=== PATIENT | female | born 1985 | race African-American/Black ===

== ENCOUNTER 2020-07-07 13:18 | Inpatient (IN) ==
[2020-07-07] MEDS ORDERED: DILTIAZEM 50 MG/10 ML VIAL IV STA (14:42)
[2020-07-07 14:49] LABS: Basophils % 0.2 % (0.0-0.8); Eosinophils # 0.1 10*3/uL (0.0-0.87); Eosinophils % 1.3 % (0.00-10.9); Hematocrit 40.9 VOL% (35.7-47.0); Hemoglobin 13.8 GM/DL (12.0-16.0); Immature Granulocytes % 0.5 %; Immature Granulocytes Absolute 0.05 #; Lymphocytes # 2.3 10*3/uL (1.4-4.0); Lymphocytes % 23.3 % (21.3-54.2); Mean Corpuscular HGB Conc 33.7 GM/DL (32-36); Mean Platelet Volume 10.6 FL (9.6-12.0); Monocytes % 6.7 % (1.7-12.7); Platelet Count 229 T/CUMM (130-400); Red Blood Count 4.35 MC/CUMM (3.8-5.5); Red Cell Distribution Width 15.4 % (9.3-17.3); White Blood Count 9.8 T/CUMM (4-12)
[2020-07-07 15:10] LABS: Albumin 3.6 G/DL (3.4-5.0); Bilirubin,Total 0.6 MG/DL (0.2-1.0); Calcium 9.2 MG/DL (8.5-10.1); Osmolality,Calculated 270.8 MOS/KG (273-304); Potassium 3.3 MMOL/L (3.5-5.1); Thyroid Stimulating Hormone 1.4 uIU/ml (0.358-3.74); Total Protein 9.1 G/DL (6.4-8.2)
[2020-07-07 16:00] LABS: Barbiturates Screen,Urine Negative (Negative); Benzodiazepines Screen,Urine Positive (Negative); Cannabinoid Screen,Urine Positive (Negative); Opiate Screen,Urine Negative (Negative); Phencyclidine Screen,Urine Negative (Negative)
[2020-07-07] MEDS ORDERED: ONDANSETRON 4 MG/2 ML VIAL IV STA (16:01)
[2020-07-07] MEDS ORDERED: HYDROmorphone 2 MG/1 ML VIAL IV STA (16:01)
[2020-07-07] MEDS ORDERED: guaiFENesin/DM ER 600-30 MG TABLET PO PRN (16:36)
[2020-07-07] MEDS ORDERED: MORPHINE 4 MG/1 ML VIAL IV PRN (16:36)
[2020-07-07] MEDS ORDERED: hydrALAZINE 20 MG/1 ML VIAL IV PRN (16:36)
[2020-07-07] MEDS ORDERED: DOCUSATE SODIUM 100 MG CAPSULE PO PRN (16:36)
[2020-07-07] MEDS ORDERED: GLUCAGON 1 MG VIAL IM PRN (16:36)
[2020-07-07] MEDS ORDERED: ACETAMINOPHEN 325 MG TABLET PO PRN (16:36)
[2020-07-07] MEDS ORDERED: ZALEPLON 5 MG CAPSULE PO PRN (16:36)
[2020-07-07] MEDS ORDERED: DEXTROSE 50% 25 GM/50 ML VIAL IV PRN (16:36)
[2020-07-07] MEDS ORDERED: FUROSEMIDE 20 MG TABLET PO PRN (16:49)
[2020-07-07] MEDS ORDERED: SODIUM CHLORIDE 0.9% 1,000 ML IV SCH (17:00)
[2020-07-07] MEDS ORDERED: POTASSIUM CHLORIDE 20 MEQ TABLET PO PRN (17:07)
[2020-07-07] MEDS ORDERED: ENOXAPARIN 150 MG/ML SYRINGE SUBCUT SCH (17:30)
[2020-07-07] MEDS: DILTIAZEM INJ 100 MG in SODIUM CHLORIDE 0.9% 100 ML IV SCH (18:18)
[2020-07-07] MEDS: HYDROmorphone 2 MG/1 ML VIAL IV PRN ×3 (18:49→22:33)
[2020-07-07] MEDS: POTASSIUM CHLORIDE INJ 30 MEQ in SODIUM CHLORIDE 0.9% 1,000 ML IV SCH (19:58)
[2020-07-07] MEDS: PROPRANOLOL 20 MG TABLET PO SCH (21:19)
[2020-07-07] MEDS: LORazepam 1 MG TABLET PO SCH (21:19)
[2020-07-07] MEDS: ONDANSETRON 4 MG/2 ML VIAL IV PRN (22:22)
[2020-07-08 02:14] LABS: Bacteria,Urine Occasional /HPF (Few); Bilirubin,Urine Negative (Negative); Blood, Urine Negative (Negative); Glucose,Urine (UA) Negative (Negative); Ketones,Urine 80 mg/dL (Negative); Mucus,Urine Occasional /LPF (Occasional); Nitrite,Urine Negative (Negative); Protein,Urine 30 MG/DL; RBC,Urine 1 /HPF (0-4); Squamous Epithelial Cell,Urine Occasional /HPF (0-10); Urine Appearance CLEAR (Clear); Urine Color Yellow (Yellow); Urine Specific Gravity 1.016 (1.001-1.035); Urine Urobilinogen < 2.0 EU/DL (0.2-1.0)
[2020-07-08] MEDS: HYDROmorphone 2 MG/1 ML VIAL IV PRN ×5 (02:37→20:45)
[2020-07-08 04:38] LABS: Basophils % 0.1 % (0.0-0.8); Eosinophils % 0.3 % (0.00-10.9); Hematocrit 38.8 VOL% (35.7-47.0); Immature Granulocytes % 0.3 %; Immature Granulocytes Absolute 0.03 #; Lymphocytes # 1.5 10*3/uL (1.4-4.0); Lymphocytes % 16.7 % (21.3-54.2); Mean Corpuscular HGB Conc 33.5 GM/DL (32-36); Mean Corpuscular Volume 94.6 FL (87-102); Mean Platelet Volume 9.9 FL (9.6-12.0); Monocytes % 6.1 % (1.7-12.7); Neutrophils % 76.5 % (38.7-73.9); Platelet Count 183 T/CUMM (130-400); Red Cell Distribution Width 15.5 % (9.3-17.3); White Blood Count 9.1 T/CUMM (4-12)
[2020-07-08] MEDS: POTASSIUM CHLORIDE INJ 30 MEQ in SODIUM CHLORIDE 0.9% 1,000 ML IV SCH ×4 (05:01→21:50)
[2020-07-08 05:28] LABS: Calcium 9.1 MG/DL (8.5-10.1); Osmolality,Calculated 272.7 MOS/KG (273-304); Potassium 3.5 MMOL/L (3.5-5.1); Risk Ratio 2.42; VLDL CHOLESTEROL 29.6 MG/DL
[2020-07-08] MEDS ORDERED: ENOXAPARIN 150 MG/ML SYRINGE SUBCUT SCH (06:30)
[2020-07-08] MEDS: ONDANSETRON 4 MG/2 ML VIAL IV PRN ×4 (07:57→20:41)
[2020-07-08] MEDS: PROPRANOLOL 20 MG TABLET PO SCH ×4 (10:00→20:43)
[2020-07-08] MEDS: PANTOPRAZOLE 40 MG TABLET PO SCH ×2 (10:00→13:26)
[2020-07-08] MEDS: LORazepam 1 MG TABLET PO SCH ×4 (10:00→20:43)
[2020-07-08] MEDS: hydrALAZINE 20 MG/1 ML VIAL IV PRN (11:03)
[2020-07-08] MEDS: DILTIAZEM INJ 100 MG in SODIUM CHLORIDE 0.9% 100 ML IV SCH (15:16)
[2020-07-09] MEDS: ONDANSETRON 4 MG/2 ML VIAL IV PRN ×5 (01:07→18:03)
[2020-07-09] MEDS: HYDROmorphone 2 MG/1 ML VIAL IV PRN ×6 (01:10→20:53)
[2020-07-09] MEDS: POTASSIUM CHLORIDE INJ 30 MEQ in SODIUM CHLORIDE 0.9% 1,000 ML IV SCH ×3 (01:13→17:09)
[2020-07-09 05:41] LABS: Albumin 3.3 G/DL (3.4-5.0); Bilirubin,Total 0.6 MG/DL (0.2-1.0); Calcium 8.8 MG/DL (8.5-10.1); Osmolality,Calculated 273.7 MOS/KG (273-304); Potassium 3.7 MMOL/L (3.5-5.1); Total Protein 8.1 G/DL (6.4-8.2)
[2020-07-09] MEDS: ENOXAPARIN 40 MG/0.4 ML SYRINGE SUBCUT SCH (08:29)
[2020-07-09] MEDS: PANTOPRAZOLE 40 MG TABLET PO SCH (08:29)
[2020-07-09] MEDS: PROPRANOLOL 20 MG TABLET PO SCH ×3 (08:29→20:53)
[2020-07-09] MEDS: LORazepam 1 MG TABLET PO SCH ×3 (08:29→20:53)
[2020-07-09] MEDS: DILTIAZEM CD 120 MG CAPSULE PO SCH (09:03)
[2020-07-09] MEDS: LOSARTAN 50 MG TABLET PO SCH (09:04)
[2020-07-09] MEDS: hydrALAZINE 20 MG/1 ML VIAL IV PRN (11:50)
[2020-07-10] MEDS: ONDANSETRON 4 MG/2 ML VIAL IV PRN ×2 (00:25→08:30)
[2020-07-10] MEDS: hydrALAZINE 20 MG/1 ML VIAL IV PRN (00:28)
[2020-07-10] MEDS: HYDROmorphone 2 MG/1 ML VIAL IV PRN ×3 (00:39→15:55)
[2020-07-10] MEDS ORDERED: LABETALOL 20 MG/4 ML SYRINGE IV ONE (02:46)
[2020-07-10] MEDS: POTASSIUM CHLORIDE INJ 30 MEQ in SODIUM CHLORIDE 0.9% 1,000 ML IV SCH ×4 (03:12→20:36)
[2020-07-10] MEDS: LORazepam 1 MG TABLET PO SCH ×3 (08:23→20:35)
[2020-07-10] MEDS: DILTIAZEM CD 120 MG CAPSULE PO SCH (08:23)
[2020-07-10] MEDS: LOSARTAN 50 MG TABLET PO SCH ×2 (08:23→09:11)
[2020-07-10] MEDS: ENOXAPARIN 40 MG/0.4 ML SYRINGE SUBCUT SCH (08:24)
[2020-07-10] MEDS: PANTOPRAZOLE 40 MG TABLET PO SCH (08:24)
[2020-07-10] MEDS: PROPRANOLOL 20 MG TABLET PO SCH ×3 (08:24→20:35)
[2020-07-10] MEDS ORDERED: DILTIAZEM CD 240 MG CAPSULE PO SCH (09:00)
[2020-07-10] MEDS ORDERED: DILTIAZEM CD 120 MG CAPSULE PO ONE (09:30)
[2020-07-11] MEDS: HYDROmorphone 2 MG/1 ML VIAL IV PRN (01:46)
[2020-07-11] MEDS: POTASSIUM CHLORIDE INJ 30 MEQ in SODIUM CHLORIDE 0.9% 1,000 ML IV SCH ×3 (01:51→15:34)
[2020-07-11 05:08] LABS: Basophils % 0.3 % (0.0-0.8); Eosinophils # 0.1 10*3/uL (0.0-0.87); Eosinophils % 1.4 % (0.00-10.9); Hematocrit 35.7 VOL% (35.7-47.0); Hemoglobin 11.8 GM/DL (12.0-16.0); Immature Granulocytes % 0.3 %; Immature Granulocytes Absolute 0.02 #; Lymphocytes # 2.1 10*3/uL (1.4-4.0); Lymphocytes % 33.2 % (21.3-54.2); Mean Corpuscular HGB Conc 33.1 GM/DL (32-36); Mean Corpuscular Volume 95.5 FL (87-102); Mean Platelet Volume 9.8 FL (9.6-12.0); Monocytes % 12.2 % (1.7-12.7); Neutrophils % 52.6 % (38.7-73.9); Platelet Count 182 T/CUMM (130-400); Red Blood Count 3.74 MC/CUMM (3.8-5.5); Red Cell Distribution Width 15.4 % (9.3-17.3); White Blood Count 6.3 T/CUMM (4-12)
[2020-07-11 05:28] LABS: Bilirubin,Direct 0.1 MG/DL (0.0-0.20); Bilirubin,Indirect 0.5 MG/DL (0.0-1.0); Bilirubin,Total 0.6 MG/DL (0.2-1.0); Calcium 8.5 MG/DL (8.5-10.1); Osmolality,Calculated 266.2 MOS/KG (273-304); Potassium 3.6 MMOL/L (3.5-5.1); Total Protein 7.6 G/DL (6.4-8.2)
[2020-07-11] MEDS: LOSARTAN 50 MG TABLET PO SCH (08:32)
[2020-07-11] MEDS: PROPRANOLOL 20 MG TABLET PO SCH (08:32)
[2020-07-11] MEDS: LORazepam 1 MG TABLET PO SCH (08:32)
[2020-07-11] MEDS: PANTOPRAZOLE 40 MG TABLET PO SCH (08:32)
[2020-07-11] MEDS: ENOXAPARIN 40 MG/0.4 ML SYRINGE SUBCUT SCH (08:33)
[2020-07-11] MEDS ORDERED: DILTIAZEM CD 240 MG CAPSULE PO SCH (09:00)
[2020-07-11 11:36] VITALS: BP 148/84
== END 2020-07-11 15:00 | disposition home or self-care (01) | DRG 439 ==
LOC: N.ED 13:18 → N.EDINP 13:18 → SUATTDRO 16:36 → N.EDINP 17:17 → N.TELEN 17:32
PROVIDERS: ADMIT Internal Medicine Geriatric Medicine; ATTEND Internal Medicine

== ENCOUNTER 2021-12-24 10:55 | Inpatient (IN) ==
[2021-12-24] MEDS ORDERED: DILTIAZEM 25 MG/5 ML VIAL IV STA (11:16)
[2021-12-24] MEDS ORDERED: DILTIAZEM 50 MG/10 ML VIAL IV ONE (11:23)
[2021-12-24 11:30] LABS: Basophils % 0.2 % (0.0-0.8); Eosinophils % 0.2 % (0.00-10.9); Hematocrit 36.6 VOL% (35.7-47.0); Hemoglobin 12.6 GM/DL (12.0-16.0); Immature Granulocytes % 0.6 %; Immature Granulocytes Absolute 0.05 #; Lymphocytes # 1.3 10*3/uL (1.4-4.0); Lymphocytes % 15.1 % (21.3-54.2); Mean Corpuscular HGB Conc 34.4 GM/DL (32-36); Mean Corpuscular Volume 99.7 FL (87-102); Mean Platelet Volume 10.9 FL (9.6-12.0); Monocytes # 0.5 10*3/uL (0.11-0.8); Monocytes % 5.6 % (1.7-12.7); NRBC # 0.02 10*3/uL; Neutrophils % 78.3 % (38.7-73.9); Platelet Count 149 T/CUMM (130-400); Red Blood Count 3.67 MC/CUMM (3.8-5.5); Red Cell Distribution Width 18.3 % (9.3-17.3); White Blood Count 8.6 T/CUMM (4-12)
[2021-12-24] MEDS: DILTIAZEM INJ 100 MG in SODIUM CHLORIDE 0.9% 100 ML IV SCH ×2 (11:31→16:35)
[2021-12-24 11:43] LABS: PT Patient Result 10.6 SECS (10.1-12.1); Partial Thromboplastin Time 23.6 SECS (23.7-32.9)
[2021-12-24 11:53] LABS: Albumin 3.8 G/DL (3.4-5.0); Bilirubin,Total 0.9 MG/DL (0.20-1.00); Calcium 8.5 MG/DL (8.5-10.1); Osmolality,Calculated 270.8 MOS/KG (273-304); Potassium 3.2 MMOL/L (3.5-5.1); Total Protein 8.8 G/DL (6.4-8.2)
[2021-12-24] MEDS ORDERED: POTASSIUM CHLORIDE 20 MEQ TABLET PO STA (12:07)
[2021-12-24 12:24] LABS: Thyroid Stimulating Hormone 0.358 uIU/ml (0.358-3.74)
[2021-12-24] MEDS ORDERED: ONDANSETRON 4 MG/2 ML VIAL ONE (12:57)
[2021-12-24] MEDS ORDERED: MAGNESIUM SULF INJ 3 GM in SODIUM CHLORIDE 0.9% 100 ML IV ONE (13:00)
[2021-12-24] MEDS ORDERED: ALUMINUM/MAGNES/SIMETH MAX STR 30 ML UDCUP PO PRN (13:00)
[2021-12-24] MEDS ORDERED: hydrALAZINE 20 MG/1 ML VIAL IV PRN (13:00)
[2021-12-24] MEDS ORDERED: ENOXAPARIN 40 MG/0.4 ML SYRINGE SUBCUT SCH (13:00)
[2021-12-24] MEDS: LORazepam 1 MG TABLET PO PRN ×2 (13:20→18:10)
[2021-12-24] MEDS ORDERED: MULTIVITAMIN INJ 10 ML in DEXTROSE 5% NACL 0.45% 1,000 ML IV SCH (15:00)
[2021-12-24] MEDS: PROPRANOLOL 20 MG TABLET PO SCH ×2 (16:38→22:15)
[2021-12-24] MEDS: APIXABAN 5 MG TABLET PO SCH ×2 (16:39→22:15)
[2021-12-24] MEDS: CALCIUM CARBONATE CHEW 500 MG TABLET PO PRN ×2 (18:09→18:11)
[2021-12-24] MEDS: chlordiazePOXIDE 25 MG CAPSULE PO PRN (18:10)
[2021-12-24] MEDS: busPIRone 15 MG TABLET PO SCH (22:15)
[2021-12-24] MEDS: FAMOTIDINE 20 MG TABLET PO SCH (22:15)
[2021-12-24] MEDS: ONDANSETRON 4 MG/2 ML VIAL IV PRN (22:24)
[2021-12-24 23:34] LABS: Bacteria,Urine Occasional /HPF (Few); Hyaline Casts,Urine 2 /LPF (0-3); Mucus,Urine Few /LPF (Occasional); RBC,Urine 2 /HPF (0-4); Squamous Epithelial Cell,Urine Moderate /HPF (0-10)
[2021-12-24 23:35] LABS: Bilirubin,Urine Small mg/dL (Negative); Blood, Urine Negative (Negative); Glucose,Urine (UA) Negative (Negative); Ketones,Urine Trace mg/dL (Negative); Nitrite,Urine Negative (Negative); Protein,Urine 30 mg/dL (Negative); Urine Appearance Clear (Clear); Urine Color Yellow (Yellow); Urine Specific Gravity 1.025 (1.001-1.035)
[2021-12-24 23:57] LABS: Barbiturates Screen,Urine Negative (Negative); Benzodiazepines Screen,Urine Negative (Negative); Cannabinoid Screen,Urine Positive (Negative); Opiate Screen,Urine Negative (Negative); Phencyclidine Screen,Urine Negative (Negative)
[2021-12-25] MEDS: HYDROmorphone 1 MG/1 ML SYRINGE IV PRN (02:14)
[2021-12-25] MEDS: DILTIAZEM INJ 100 MG in SODIUM CHLORIDE 0.9% 100 ML IV SCH (02:15)
[2021-12-25 05:03] LABS: Basophils % 0.2 % (0.0-0.8); Eosinophils % 0.7 % (0.00-10.9); Hematocrit 34.9 VOL% (35.7-47.0); Immature Granulocytes % 0.3 %; Immature Granulocytes Absolute 0.02 #; Lymphocytes # 1.8 10*3/uL (1.4-4.0); Lymphocytes % 31.2 % (21.3-54.2); Mean Corpuscular HGB Conc 34.4 GM/DL (32-36); Mean Corpuscular Volume 100.9 FL (87-102); Mean Platelet Volume 11.4 FL (9.6-12.0); Monocytes # 0.4 10*3/uL (0.11-0.8); Monocytes % 7.2 % (1.7-12.7); NRBC # 0.02 10*3/uL; Neutrophils % 60.4 % (38.7-73.9); Platelet Count 116 T/CUMM (130-400); Red Blood Count 3.46 MC/CUMM (3.8-5.5); Red Cell Distribution Width 18.5 % (9.3-17.3); White Blood Count 5.9 T/CUMM (4-12)
[2021-12-25 05:32] LABS: Potassium 2.9 MMOL/L (3.5-5.1); Risk Ratio 1.95
[2021-12-25 05:43] LABS: Albumin 3.3 G/DL (3.4-5.0); Bilirubin,Direct 0.29 MG/DL (0.0-0.20); Bilirubin,Indirect 0.7 MG/DL (0.0-1.0)
[2021-12-25 05:54] LABS: Folate 5.9 NG/ML (5.38-24.0)
[2021-12-25 06:12] LABS: Hepatitis B Core IgM Quant 0.06 Index; Hepatitis B Surface Ag Quant < 0.10 Index; Hepatitis B Surface Ag Result Non-Reactive (NonReactive); Hepatitis C Virus Ab Quant 0.51 Index; Hepatitis C Virus Ab Result Non-Reactive (NonReactive)
[2021-12-25] MEDS ORDERED: DILTIAZEM CD 120 MG CAPSULE PO SCH (09:00)
[2021-12-25] MEDS ORDERED: PANTOPRAZOLE 40 MG TABLET PO SCH (09:00)
[2021-12-25] MEDS: CHOLECALCIFEROL 1,000 UNIT TABLET PO SCH (09:17)
[2021-12-25] MEDS: PARoxetine 20 MG TABLET PO SCH (09:17)
[2021-12-25] MEDS: DILTIAZEM CD 240 MG CAPSULE PO SCH (09:18)
[2021-12-25] MEDS: LOSARTAN 50 MG TABLET PO SCH (09:18)
[2021-12-25] MEDS: busPIRone 15 MG TABLET PO SCH ×2 (09:18→21:51)
[2021-12-25] MEDS: PROPRANOLOL 20 MG TABLET PO SCH ×3 (09:18→21:51)
[2021-12-25] MEDS: APIXABAN 5 MG TABLET PO SCH ×2 (09:18→21:51)
[2021-12-25] MEDS: POTASSIUM CHLORIDE 20 MEQ TABLET PO SCH ×4 (09:19→14:54)
[2021-12-25] MEDS: LORazepam 1 MG TABLET PO PRN (09:23)
[2021-12-25] MEDS: ONDANSETRON 4 MG/2 ML VIAL IV PRN (12:45)
[2021-12-25] MEDS ORDERED: LACTATED RINGERS 1,000 ML IV SCH (13:00)
[2021-12-25] MEDS: chlordiazePOXIDE 25 MG CAPSULE PO PRN (14:37)
[2021-12-25] MEDS ORDERED: ONDANSETRON 4 MG/2 ML VIAL IV ONE (15:06)
[2021-12-25] MEDS: POTASSIUM CHLORIDE INJ 20 MEQ in LACTATED RINGERS 1,000 ML IV SCH (17:26)
[2021-12-25] MEDS: FAMOTIDINE 20 MG TABLET PO SCH (21:51)
[2021-12-26] MEDS: POTASSIUM CHLORIDE INJ 20 MEQ in LACTATED RINGERS 1,000 ML IV SCH ×2 (04:25→14:27)
[2021-12-26 04:55] LABS: Eosinophils # 0.1 10*3/uL (0.0-0.87); Hematocrit 34.7 VOL% (35.7-47.0); Immature Granulocytes % 0.3 %; Immature Granulocytes Absolute 0.02 #; Lymphocytes # 2.4 10*3/uL (1.4-4.0); Lymphocytes % 34.6 % (21.3-54.2); Mean Corpuscular HGB Conc 34.6 GM/DL (32-36); Mean Corpuscular Volume 101.2 FL (87-102); Monocytes # 0.6 10*3/uL (0.11-0.8); Monocytes % 9.2 % (1.7-12.7); Neutrophils % 54.9 % (38.7-73.9); Platelet Count 113 T/CUMM (130-400); Red Blood Count 3.43 MC/CUMM (3.8-5.5); Red Cell Distribution Width 18.7 % (9.3-17.3); White Blood Count 6.8 T/CUMM (4-12)
[2021-12-26 05:14] LABS: Calcium 9.2 MG/DL (8.5-10.1); Potassium 3.2 MMOL/L (3.5-5.1)
[2021-12-26] MEDS: PARoxetine 20 MG TABLET PO SCH (08:21)
[2021-12-26] MEDS: busPIRone 15 MG TABLET PO SCH ×2 (08:21→21:45)
[2021-12-26] MEDS: APIXABAN 5 MG TABLET PO SCH ×2 (08:22→21:43)
[2021-12-26] MEDS: THIAMINE 100 MG TABLET PO SCH (08:22)
[2021-12-26] MEDS: FOLIC ACID 1 MG TABLET PO SCH (08:22)
[2021-12-26] MEDS: CHOLECALCIFEROL 1,000 UNIT TABLET PO SCH (08:22)
[2021-12-26] MEDS: LOSARTAN 50 MG TABLET PO SCH (08:22)
[2021-12-26] MEDS: SOTALOL 80 MG TABLET PO SCH ×2 (08:25→21:42)
[2021-12-26] MEDS: DILTIAZEM CD 240 MG CAPSULE PO SCH (08:25)
[2021-12-26] MEDS: POTASSIUM CHLORIDE RIDER 10 MEQ/100 ML PREMIX IV SCH ×4 (08:35→12:49)
[2021-12-26] MEDS: HYDROmorphone 1 MG/1 ML SYRINGE IV PRN ×3 (10:08→21:43)
[2021-12-26] MEDS: ONDANSETRON 4 MG/2 ML VIAL IV PRN ×2 (17:16→21:45)
[2021-12-26] MEDS: FAMOTIDINE 20 MG TABLET PO SCH (21:43)
[2021-12-26] MEDS: LORazepam 1 MG TABLET PO PRN (21:43)
[2021-12-27] MEDS: POTASSIUM CHLORIDE INJ 20 MEQ in LACTATED RINGERS 1,000 ML IV SCH ×3 (02:17→23:00)
[2021-12-27] MEDS: ONDANSETRON 4 MG/2 ML VIAL IV PRN ×4 (04:18→23:40)
[2021-12-27] MEDS: HYDROmorphone 1 MG/1 ML SYRINGE IV PRN ×5 (04:18→23:38)
[2021-12-27 04:52] LABS: Basophils % 0.1 % (0.0-0.8); Eosinophils # 0.2 10*3/uL (0.0-0.87); Eosinophils % 2.2 % (0.00-10.9); Hematocrit 34.3 VOL% (35.7-47.0); Hemoglobin 11.7 GM/DL (12.0-16.0); Immature Granulocytes % 0.3 %; Immature Granulocytes Absolute 0.02 #; Lymphocytes # 2.5 10*3/uL (1.4-4.0); Lymphocytes % 33.6 % (21.3-54.2); Mean Corpuscular HGB Conc 34.1 GM/DL (32-36); Mean Corpuscular Volume 102.4 FL (87-102); Mean Platelet Volume 11.5 FL (9.6-12.0); Monocytes # 0.7 10*3/uL (0.11-0.8); Monocytes % 8.8 % (1.7-12.7); Platelet Count 111 T/CUMM (130-400); Red Blood Count 3.35 MC/CUMM (3.8-5.5); Red Cell Distribution Width 18.9 % (9.3-17.3); White Blood Count 7.4 T/CUMM (4-12)
[2021-12-27 05:26] LABS: Calcium 9.1 MG/DL (8.5-10.1); Osmolality,Calculated 266.2 MOS/KG (273-304); Potassium 3.5 MMOL/L (3.5-5.1)
[2021-12-27] MEDS: SOTALOL 80 MG TABLET PO SCH ×2 (08:54→20:36)
[2021-12-27] MEDS: DILTIAZEM CD 240 MG CAPSULE PO SCH (08:54)
[2021-12-27] MEDS: LOSARTAN 50 MG TABLET PO SCH (08:54)
[2021-12-27] MEDS: APIXABAN 5 MG TABLET PO SCH ×2 (08:54→20:36)
[2021-12-27] MEDS: FOLIC ACID 1 MG TABLET PO SCH (08:54)
[2021-12-27] MEDS: THIAMINE 100 MG TABLET PO SCH (08:54)
[2021-12-27] MEDS: CHOLECALCIFEROL 1,000 UNIT TABLET PO SCH (08:54)
[2021-12-27] MEDS: busPIRone 15 MG TABLET PO SCH ×2 (08:57→20:36)
[2021-12-27] MEDS: PARoxetine 20 MG TABLET PO SCH (08:57)
[2021-12-27] MEDS: LORazepam 1 MG TABLET PO PRN ×2 (09:02→20:37)
[2021-12-27] MEDS: chlordiazePOXIDE 25 MG CAPSULE PO PRN (14:30)
[2021-12-27] MEDS: FAMOTIDINE 20 MG TABLET PO SCH (20:36)
[2021-12-28] MEDS: HYDROmorphone 1 MG/1 ML SYRINGE IV PRN ×2 (04:40→09:53)
[2021-12-28] MEDS: ONDANSETRON 4 MG/2 ML VIAL IV PRN ×4 (04:41→20:28)
[2021-12-28 05:51] LABS: Osmolality,Calculated 268.1 MOS/KG (273-304); Potassium 3.7 MMOL/L (3.5-5.1)
[2021-12-28 06:02] LABS: Basophils % 0.1 % (0.0-0.8); Eosinophils # 0.1 10*3/uL (0.0-0.87); Eosinophils % 1.8 % (0.00-10.9); Hematocrit 34.2 VOL% (35.7-47.0); Hemoglobin 11.6 GM/DL (12.0-16.0); Immature Granulocytes % 0.1 %; Immature Granulocytes Absolute 0.01 #; Lymphocytes # 2.9 10*3/uL (1.4-4.0); Lymphocytes % 42.7 % (21.3-54.2); Mean Corpuscular HGB Conc 33.9 GM/DL (32-36); Mean Corpuscular Volume 103.3 FL (87-102); Mean Platelet Volume 11.8 FL (9.6-12.0); Monocytes # 0.6 10*3/uL (0.11-0.8); Monocytes % 9.5 % (1.7-12.7); Neutrophils % 45.8 % (38.7-73.9); Platelet Count 120 T/CUMM (130-400); Red Blood Count 3.31 MC/CUMM (3.8-5.5); Red Cell Distribution Width 19.5 % (9.3-17.3); White Blood Count 6.8 T/CUMM (4-12)
[2021-12-28 06:04] LABS: Anisocytosis 2+; Hypochromia 2+; Microcytosis 2+; Platelet Estimate Adequate; Poikilocytosis 2+
[2021-12-28] MEDS: DILTIAZEM CD 240 MG CAPSULE PO SCH (09:43)
[2021-12-28] MEDS: LOSARTAN 50 MG TABLET PO SCH (09:43)
[2021-12-28] MEDS: busPIRone 15 MG TABLET PO SCH ×2 (09:43→20:28)
[2021-12-28] MEDS: SOTALOL 80 MG TABLET PO SCH ×2 (09:43→20:28)
[2021-12-28] MEDS: APIXABAN 5 MG TABLET PO SCH ×2 (09:43→20:28)
[2021-12-28] MEDS: CHOLECALCIFEROL 1,000 UNIT TABLET PO SCH (09:44)
[2021-12-28] MEDS: FOLIC ACID 1 MG TABLET PO SCH (09:44)
[2021-12-28] MEDS: THIAMINE 100 MG TABLET PO SCH (09:44)
[2021-12-28] MEDS: PARoxetine 20 MG TABLET PO SCH (09:45)
[2021-12-28] MEDS ORDERED: ACETAMINOPHEN 325 MG TABLET PO PRN (13:55)
[2021-12-28] MEDS: FAMOTIDINE 20 MG TABLET PO SCH (20:28)
[2021-12-29] MEDS: ONDANSETRON 4 MG/2 ML VIAL IV PRN ×2 (04:18→08:44)
[2021-12-29 05:01] LABS: Basophils % 0.2 % (0.0-0.8); Eosinophils # 0.1 10*3/uL (0.0-0.87); Eosinophils % 1.9 % (0.00-10.9); Hemoglobin 11.9 GM/DL (12.0-16.0); Immature Granulocytes % 0.3 %; Immature Granulocytes Absolute 0.02 #; Lymphocytes # 2.6 10*3/uL (1.4-4.0); Lymphocytes % 44.1 % (21.3-54.2); Mean Corpuscular Volume 104.5 FL (87-102); Mean Platelet Volume 11.3 FL (9.6-12.0); Monocytes # 0.7 10*3/uL (0.11-0.8); Monocytes % 11.8 % (1.7-12.7); Neutrophils % 41.7 % (38.7-73.9); Platelet Count 127 T/CUMM (130-400); Red Blood Count 3.35 MC/CUMM (3.8-5.5); Red Cell Distribution Width 19.3 % (9.3-17.3); White Blood Count 5.8 T/CUMM (4-12)
[2021-12-29 05:27] LABS: Calcium 9.2 MG/DL (8.5-10.1); Osmolality,Calculated 269.8 MOS/KG (273-304); Potassium 3.5 MMOL/L (3.5-5.1)
[2021-12-29 08:14] VITALS: BP 109/75
[2021-12-29] MEDS: FOLIC ACID 1 MG TABLET PO SCH (10:19)
[2021-12-29] MEDS: APIXABAN 5 MG TABLET PO SCH (10:19)
[2021-12-29] MEDS: SOTALOL 80 MG TABLET PO SCH (10:19)
[2021-12-29] MEDS: LOSARTAN 50 MG TABLET PO SCH (10:19)
[2021-12-29] MEDS: CHOLECALCIFEROL 1,000 UNIT TABLET PO SCH (10:19)
[2021-12-29] MEDS: PARoxetine 20 MG TABLET PO SCH (10:19)
[2021-12-29] MEDS: THIAMINE 100 MG TABLET PO SCH (10:19)
[2021-12-29] MEDS: busPIRone 15 MG TABLET PO SCH (10:19)
[2021-12-29] MEDS: DILTIAZEM CD 240 MG CAPSULE PO SCH (10:20)
== END 2021-12-29 11:05 | disposition home or self-care (01) | DRG 308 ==
LOC: N.EDINP 10:55 → N.ED 10:55 → N.TELEN 12:47 → SUATTDRO 12-26 11:20
PROVIDERS: ADMIT Internal Medicine; ATTEND Emergency Medicine